=== PATIENT | female | born 1955 | race Caucasian/White ===

== ENCOUNTER 2024-01-25 05:51 | Day surgery (SDC) | payer MEDICARE, OTHER ==
[~2024-01-25] VITALS: Ht 172.7 cm; Wt 129.5 kg
[~2024-01-25 05:51] MED LIST: LR 1,000 ML IV SCH
[2024-01-25] MEDS ORDERED: NS 100 ML IV ONE (06:33)
[2024-01-25] MEDS ORDERED: Rocuronium 50 MG/5 ML Multi-Dose VIAL ONE ×2 (06:33→07:52)
[2024-01-25] MEDS ORDERED: fentaNYL 50 MCG/ML 2 ML VIAL ONE ×2 (06:33→07:52)
[2024-01-25] MEDS ORDERED: Lidocaine PF 2% (20 MG/ML) 5 ML VIAL ONE (06:33)
[2024-01-25] MEDS ORDERED: NS 30 ML IV ONE (06:34)
[2024-01-25] MEDS ORDERED: Glycopyrrolate 0.2 MG/ML 1 ML VIAL ONE (06:34)
[2024-01-25] MEDS ORDERED: Ketorolac 30 MG/ML VIAL ONE (06:34)
[2024-01-25] MEDS ORDERED: NS 20 ML IV ONE (06:34)
[2024-01-25] MEDS ORDERED: Ondansetron 4 MG/2 ML VIAL ONE (06:34)
[2024-01-25] MEDS ORDERED: dexAMETHasone 10 MG/ML VIAL ONE (06:34)
[2024-01-25] MEDS ORDERED: SANCTURA XR60 MG PO (07:09)
[2024-01-25] MEDS ORDERED: COZAAR 25MG25 MG/TAB PO (07:09)
[2024-01-25] MEDS ORDERED: ZYRTEC 10MG10 MG PO (07:11)
[2024-01-25] MEDS ORDERED: ADVIL LIQUI-GE200 MG PO (07:12)
[2024-01-25] MEDS ORDERED: PROAIR HFA0.09 MG/AC IH (07:13)
[2024-01-25] MEDS ORDERED: EPIPEN 2-PAK1 MG/ML IM (07:13)
[2024-01-25 07:16] VITALS: BP 146/69; PULSE 90; TEMP 98
[2024-01-25] MEDS ORDERED: ePHEDrine 50 MG/ML VIAL ONE (07:37)
[2024-01-25] MEDS ORDERED: Topical Skin Adhesive 1 EACH (1 ML) TOP ONE (07:42)
[2024-01-25] MEDS ORDERED: Ondansetron 4 MG/2 ML VIAL IV PRN ×2 (08:00→09:30)
[2024-01-25] MEDS ORDERED: HYDROmorphone 1 MG/1 ML SYRINGE [PACU/SDC ONLY] IV PRN (08:00)
[2024-01-25] MEDS ORDERED: Morphine 2 MG/1 ML VIAL [PACU/SDC ONLY] IV PRN (08:00)
[2024-01-25] MEDS ORDERED: droPERidol 2.5 MG/ML 2 ML VIAL IV PRN (08:00)
[2024-01-25] MEDS ORDERED: hydrALAZINE 20 MG/ML 1 ML VIAL IV PRN (08:00)
[2024-01-25] MEDS ORDERED: fentaNYL 50 MCG/ML 1 ML SYRINGE/VIAL [PACU/SDC ONLY] IV PRN (08:00)
[2024-01-25] MEDS ORDERED: traMADol 50 MG TAB PO PRN (09:30)
[2024-01-25] MEDS ORDERED: Acetaminophen 325 MG TAB PO PRN (09:30)
[2024-01-25] MEDS ORDERED: ULTRAM 50MG TAB50 MG PO (09:31)
--- NOTE | 2024-01-25 10:15 | NUR ---
PATIENT RETURNS TO ROOM 8 PER CART FROM [facility] ACCOMPANIED BY CORI DALTON AND IS AWAKE AND ALERT. TAKING ICE CHIPS. DENIES ANY PAIN OR NAUSEA. ABDOMINAL INCISIONS X3 ON ABDOMEN NOTED. WOUND EDGES WELL APPROXIMATED WITH SKIN GLUE NOTED. ABDOMEN SOFT AND OBESE. IVF INFUSING. ENCOURAGED DEEP BREATHING. DAUGHTER IN ROOM. CALL LIGHT IN REACH. SIDERAILS UP X2.
[2024-01-25 10:27] VITALS: BP 132/76; PULSE 98; TEMP 97.4
--- NOTE | 2024-01-25 10:30 | NUR ---
RESTING AND TALKING WITH DAUGHTER.
--- NOTE | 2024-01-25 10:40 | NUR ---
MEDICATED WITH TRAMADOL 5O MG PO FOR PAIN 09/10 AND IN PREPARATION FOR DISCHARGE.
[2024-01-25 10:45] VITALS: BP 123/65; BP 137/75; PULSE 92; PULSE 96
--- NOTE | 2024-01-25 10:45 | NUR ---
TOLERATED APPLESAUCE. DENIES NAUSEA. STATES SHE FEELS GOOD AND WANTS TO GO HOME.
[2024-01-25 11:00] VITALS: BP 130/60; PULSE 94; TEMP 07.9
--- NOTE | 2024-01-25 11:00 | NUR ---
IV DISCONTINUED AND SITE FREE OF REDNESS. ASSISTED WITH DRESSING BY DAUGHTER. SITTING ON EDGE OF CART. DENIES NAUSEA AND CONTINUES TO RATE PAIN AT 2-3/10. INCISIONS ON ABDOMEN REMAIN WITH WOUND EDGES WELL APPROXIMATED.
--- NOTE | 2024-01-25 11:16 | NUR ---
Discharge instructions given and patient and daugther both verbalzie understanding of these. Provided f/u appointment card with date and time.
--- NOTE | 2024-01-25 11:23 | NUR ---
Patient discharged to home driven by daughter per private vehicle with instructions in hand. Taken to car per wheelchair and assisted into car by this RN.
== END 2024-01-25 11:23 | disposition home or self-care (01) ==
LOC: SDCO 05:51
DX: K43.2 Incisional hernia without obstruction or gangrene (principal); I47.10 Supraventricular tachycardia, unspecified; I10 Essential (primary) hypertension; Z79.899 Other long term (current) drug therapy
CPT/HCPCS: A4314; C1781; J0690; J1100; J1170; J1885; J2405; J2704; J2795; J3010; J7120